=== PATIENT | female | born 1985 | race African-American/Black ===

== ENCOUNTER 2016-05-04 09:52 | Emergency (ER) | payer OTHER ==
[~2016-05-04] VITALS: Ht 152.4 cm; Wt 93.9 kg
[2016-05-04 10:04] VITALS: BP 132/82
--- NOTE | 2016-05-04 10:10 | NUR ---
Patient ambulated to bed 04.
[2016-05-04] MEDS ORDERED: CYCLOBENZAPRINE10 M5 PO (10:13)
[2016-05-04] MEDS ORDERED: NORCO 5/325 MG1 TAB PO (10:13)
[2016-05-04] MEDS ORDERED: MOTRIN600 MG PO (10:13)
--- NOTE | 2016-05-04 10:14 | NUR ---
30/F TO ED WITH C/O LOWER BACK PAIN 12/09 ACHING. DENIES TRAUMA. PT STATES SHE WAS SEEN IN ED 1 WEEK AGO. LUNGS CLEAR BILAT. HR EVEN AND REGULAR. AAOX4. VSS. NO SIGNS OF DISTRESS.
--- NOTE | 2016-05-04 10:38 | NUR ---
Dr. Holloway evaluating patient at bedside.
[2016-05-04] MEDS ORDERED: KETOROLAC 60 MG/2 ML VIAL IM ONE (10:40)
[2016-05-04] MEDS ORDERED: HYDROcodone/APAP 7.5/325 MG 1 TAB PO ONE (10:40)
[2016-05-04 12:15] VITALS: BP 132/82
--- NOTE | 2016-05-04 12:16 | NUR ---
Patient discharged with v/s stable. Written and verbal after care instructions given and explained. Patient alert, oriented and verbalized understanding of instructions. Ambulatory with steady gait. All questions addressed prior to discharge. ID band removed. Patient advised to follow up with PMD. Rx of MOBIC AND NORCO given. Patient educated on indication of medication including possible reaction and side effects. Opportunity to ask questions provided and answered.
== END 2016-05-04 12:16 | disposition home or self-care (01) ==
LOC: MED 09:55
DX: M54.40 Lumbago with sciatica, unspecified side (principal)
CPT/HCPCS: 96372; 99283; J1885

== ENCOUNTER 2016-05-18 12:43 | Emergency (ER) | payer OTHER ==
[~2016-05-18] VITALS: Ht 152.4 cm; Wt 91.6 kg
[~2016-05-18 12:43] MED LIST: CYCL10TA40 PO; HYDR-4446 PO; IBUP-2213 PO
[2016-05-18 12:59] VITALS: BP 125/68
--- NOTE | 2016-05-18 14:00 | NUR ---
Patient ambulated to bed 05.
--- NOTE | 2016-05-18 14:04 | NUR ---
PATIENT PRESENTS TO ED WITH C/O ABD PAIN AND NVD SINCE YESTERDAY; SKIN IS PINK/WARM/DRY; AAOX4 WITH EVEN AND STEADY GAIT; LUNGS CLEAR BL; HR EVEN AND REGULAR; PT DENIES ANY FEVER, CP, SOB, OR COUGH AT THIS TIME; PATIENT STATES PAIN OF 10/10 AT THIS TIME; VSS; PATIENT POSITIONED FOR COMFORT; HOB ELEVATED; BEDRAILS UP X2; BED DOWN. ER MD MADE AWARE OF PT STATUS.
[2016-05-18] MEDS ORDERED: KETOROLAC 30 MG/ML VIAL IVP ONE (14:15)
[2016-05-18] MEDS ORDERED: ONDANSETRON 4 MG/2 ML VIAL IVP ONE (14:15)
[2016-05-18] MEDS: NACL 0.9% 1,000 ML IV SCH ×2 (14:31→16:12)
[2016-05-18 14:41] LABS: HEMOGLOBIN 15.2 g/dL (12.0-16.0); MEAN CORPUSCULAR HEMOGLOBIN 29 pg (27-31); MEAN CORPUSCULAR HGB CONC 33 g/dL (33-37); MEAN CORPUSCULAR VOLUME 88 fL (80-94); PLATELET COUNT (AUTO) 204 K/uL (140-450); RED BLOOD CELL COUNT(AUTO) 5.25 MIL/uL (4.20-5.40); RED CELL DISTRIBUTION WIDTH 11.5 % (11.6-13.7); WHITE BLOOD COUNT (AUTO) 12.1 K/uL (4.8-10.8)
[2016-05-18 14:51] LABS: ANION GAP 16.6 (8-16); CALCIUM 8.7 mg/dL (8.5-10.1); CARBON DIOXIDE 24.4 mmol/L (21-32)
[2016-05-18 14:56] LABS: TOTAL BILIRUBIN 0.6 mg/dL (0.0-1.0)
[2016-05-18 15:02] LABS: BAND % (MANUAL) 9 % (0-8); LYMPHOCYTES % (MANUAL) 4 % (20-46); MONOCYTES % (MANUAL) 2 % (5-12); NEUTROPHILS % (MANUAL) 85 (43-65); PLATELET ESTIMATE ADEQUATE
[2016-05-18 15:57] LABS: BILIRUBIN,URINE NEGATIVE (NEGATIVE); BLOOD, URINE 3+ (NEGATIVE); COLOR,URINE YELLOW (YELLOW); LEUKOCYTE ESTERASE ,URINE NEGATIVE (NEGATIVE); NITRITE, URINE NEGATIVE (NEGATIVE); PH,URINE 5.5 (5.0-9.0); PROTEIN,URINE 2+ (NEGATIVE); UGLUCOSE NEGATIVE (NEGATIVE); UROBILINOGEN,URINE 0.2 EU/dL (0.2 - 1)
[2016-05-18 15:59] LABS: APPEARANCE,URINE HAZY (CLEAR)
[2016-05-18 16:06] LABS: BACTERIA,URINE 1+ /HPF (None Seen); RBC,URINE 0-5 (RARE) /HPF (0-5); SQUAMOUS EPITHELIAL CELL,UR 4-10 (MOD) /LPF (0-3 (FEW)); WBC,URINE 0-5 (RARE) /HPF (0-5)
[2016-05-18] MEDS ORDERED: SULFAMETH/TRIMETH DS 800/160MG 1 TAB PO ONE (16:25)
[2016-05-18] MEDS ORDERED: NACL 0.9% 1,000 ML IV ONE (16:40)
[2016-05-18 17:00] VITALS: BP 124/72
--- NOTE | 2016-05-18 17:00 | NUR ---
Patient discharged with v/s stable. Written and verbal after care instructions given and explained. Patient alert, oriented and verbalized understanding of instructions. Ambulatory with steady gait. All questions addressed prior to discharge. ID band removed. Patient advised to follow up with PMD. Rx of ZOFRAN, BACTRIM given. Patient educated on indication of medication including possible reaction and side effects. Opportunity to ask questions provided and answered.
== END 2016-05-18 17:00 | disposition home or self-care (01) ==
LOC: MED 12:43
DX: N39.0 Urinary tract infection, site not specified (principal); T62.8X1A Toxic effect of other specified noxious substances eaten as food, accidental (unintentional), initial encounter; Y92.89 Other specified places as the place of occurrence of the external cause
CPT/HCPCS: 36415; 80053; 81001; 82150; 83690; 84703; 85025; 87086; 96361; 96374; 96375; 99285; J1885; J2405; J7030

== ENCOUNTER 2016-06-12 13:58 | Emergency (ER) | payer OTHER ==
[~2016-06-12] VITALS: Ht 160 cm; Wt 89.0 kg
[~2016-06-12 13:58] MED LIST changes: -CYCL10TA40 PO; +CYCLOBENZAPRINE10 M5 PO; -HYDR-4446 PO; -IBUP-2213 PO; +MOTRIN600 MG PO; +NORCO 5/325 MG1 TAB PO
[2016-06-12 14:49] VITALS: BP 111/76
--- NOTE | 2016-06-12 17:05 | NUR ---
PATIENT PRESENTS TO ED WITH c/o bug bites ON LOWER EXTREMITIES with pruritus x3 days PT STATES [place] 3 DAYS AGO AND I THINK I GOT BUG BITE. DENIES N/V/D; SKIN IS PINK/WARM/DRY; AAOX4 WITH EVEN AND STEADY GAIT; LUNGS CLEAR BL; HR EVEN AND REGULAR; PT DENIES ANY FEVER, CP, SOB, OR COUGH AT THIS TIME; PATIENT STATES PAIN OF 0/10 AT THIS TIME; VSS; PATIENT POSITIONED FOR COMFORT; HOB ELEVATED; BEDRAILS UP X2; BED DOWN. ER MD MADE AWARE OF PT STATUS.
--- NOTE | 2016-06-12 17:08 | NUR ---
NOTED DRY RASH ON LOWER EXTREMITIES, NO BLEEDING NOTED, C/O OF ITCHINESS.
[2016-06-12 17:54] VITALS: BP 127/84
--- NOTE | 2016-06-12 17:55 | NUR ---
Patient discharged with v/s stable. Written and verbal after care instructions given and explained. Patient alert, oriented and verbalized understanding of instructions. Ambulatory with steady gait. All questions addressed prior to discharge. ID band removed. Patient advised to follow up with PMD. Rx of zyrtec and hydrocortisone given. Patient educated on indication of medication including possible reaction and side effects. Opportunity to ask questions provided and answered.encouraged vit c intake and pt agreed with it
== END 2016-06-12 17:55 | disposition home or self-care (01) ==
LOC: MED 13:58
DX: S90.562A Insect bite (nonvenomous), left ankle, initial encounter (principal); S80.862A Insect bite (nonvenomous), left lower leg, initial encounter; W57.XXXA Bitten or stung by nonvenomous insect and other nonvenomous arthropods, initial encounter; Y93.89 Activity, other specified; Y92.830 Public park as the place of occurrence of the external cause; Y99.8 Other external cause status

== ENCOUNTER 2017-05-24 19:39 | Emergency (ER) | payer OTHER ==
[~2017-05-24] VITALS: Ht 152.4 cm; Wt 95.3 kg
[~2017-05-24 19:39] MED LIST changes: +ACET-8386 PO; +CYCL10TA36 PO; -CYCLOBENZAPRINE10 M5 PO; +IBUP-2213 PO; -MOTRIN600 MG PO; -NORCO 5/325 MG1 TAB PO
[2017-05-24 19:44] VITALS: BP 146/85
--- NOTE | 2017-05-24 19:53 | NUR ---
PT AMBULATED TO BED 3 Addendum: 05/24/17 at 6 by JAMES PATIENT IN BED 1
--- NOTE | 2017-05-24 19:55 | NUR ---
PATIENT IS A 31 Y/O FEMALE WHO PRESENTS TO THE ED C/O VAGINAL BLEEDING. PT STATES SHE IS 9 WEEKS AND EXPERIENCING BLEEDING X3 DAYS." . PT REPORTS 10/10 ACHING VAGINAL PAIN THAT DOES NOT RADIATE. PT DENIES CP, SOB, REPORTS NAUSEA/VOMITING DENIES DIARRHEA. PT AAOX4, RR EVEN/UNLABORED. PT REPOSITIONED FOR COMFORT, BED IN LOWEST POSITION. ER MD DR. SOTO NOTIFIED. WILL CONTINUE TO MONITOR. Addendum: 05/24/17 at 2331 by [email or web address] PATIENT IS A 31 Y/O FEMALE WHO PRESENTS TO THE ED C/O VAGINAL BLEEDING. PT STATES SHE IS 9 WEEKS AND EXPERIENCING BLEEDING X3 DAYS." . PT REPORTS 10/10 ACHING VAGINAL PAIN THAT DOES NOT RADIATE. PT DENIES CP, SOB, REPORTS NAUSEA/VOMITING DENIES DIARRHEA. PT AAOX4, RR EVEN/UNLABORED. PT REPOSITIONED FOR COMFORT, BED IN LOWEST POSITION. ER MD DR. SOTO NOTIFIED. WILL CONTINUE TO MONITOR.
[2017-05-24] MEDS ORDERED: ACETAMINOPHEN 325 MG TAB PO ONE (20:35)
[2017-05-24] MEDS ORDERED: METOCLOPRAMIDE 10 MG TAB PO ONE (20:35)
[2017-05-24 20:43] LABS: BASOPHILS # (AUTO) 0.3 K/uL (0.00-0.22); BASOPHILS % (AUTO) 2.3 % (0.0-2.0); EOSINOPHILS # (AUTO) 0.1 K/uL (0-0.4); EOSINOPHILS % (AUTO) 0.8 % (0.0-4.0); HEMATOCRIT 36.9 % (36-48); HEMOGLOBIN 12.5 g/dL (12.0-16.0); LYMPHOCYTES # (AUTO) 3.5 K/uL (2.5-16.5); LYMPHOCYTES % (AUTO) 31.1 % (20.5-51.1); MEAN CORPUSCULAR HEMOGLOBIN 29 pg (27-31); MEAN CORPUSCULAR HGB CONC 34 g/dL (33-37); MEAN CORPUSCULAR VOLUME 86.6 fL (80-94); MONOCYTES % (AUTO) 8.5 % (1.7-9.3); NEUTROPHILS # (AUTO) 6.4 K/uL (1.8-7.7); NEUTROPHILS % (AUTO) 57.3 % (42.2-75.2); PLATELET COUNT (AUTO) 178 K/uL (140-450); RED BLOOD CELL COUNT(AUTO) 4.26 MIL/uL (4.20-5.40); RED CELL DISTRIBUTION WIDTH 12.4 % (11.6-13.7); WHITE BLOOD COUNT (AUTO) 11.3 K/uL (4.8-10.8)
[2017-05-24 20:54] LABS: ALBUMIN 3.2 g/dL (3.4-5.0); CARBON DIOXIDE 26.6 mmol/L (21-32); CREATININE 0.6 mg/dL (0.6-1.3); POTASSIUM 3.6 mmol/L (3.5-5.1); TOTAL BILIRUBIN 0.3 mg/dL (0.0-1.0)
--- NOTE | 2017-05-24 20:55 | NUR ---
PATIENT RESTING AT THIS TIME. NO SIGNS OF DISTRESS.
[2017-05-24 22:42] LABS: APPEARANCE,URINE CLEAR (CLEAR); BILIRUBIN,URINE NEGATIVE (NEGATIVE); BLOOD, URINE 2+ (NEGATIVE); COLOR,URINE YELLOW (YELLOW); LEUKOCYTE ESTERASE ,URINE NEGATIVE (NEGATIVE); NITRITE, URINE NEGATIVE (NEGATIVE); PH,URINE 7.5 (5.0-9.0); UGLUCOSE NEGATIVE (NEGATIVE)
[2017-05-24 23:21] LABS: RBC,URINE 3-10 (FEW) /HPF (0-5); WBC,URINE 0-5 (RARE) /HPF (0-5)
[2017-05-24 23:47] VITALS: BP 125/82
--- NOTE | 2017-05-24 23:47 | NUR ---
Patient discharged with v/s stable. Written and verbal after care instructions given and explained. Patient alert, oriented and verbalized understanding of instructions. Ambulatory with steady gait. All questions addressed prior to discharge. ID band removed. Patient advised to follow up with PMD. Rx of KEFLEX 500MG given. Patient educated on indication of medication including possible reaction and side effects. Opportunity to ask questions provided and answered.
== END 2017-05-24 23:47 | disposition home or self-care (01) ==
LOC: MED 19:39
DX: O34.81 Maternal care for other abnormalities of pelvic organs, first trimester (principal); N83.202 Unspecified ovarian cyst, left side; O20.8 Other hemorrhage in early pregnancy; Z3A.09 9 weeks gestation of pregnancy; Z79.899 Other long term (current) drug therapy
CPT/HCPCS: 36415; 76801; 80053; 81001; 81025; 84702; 85025; 86900; 86901; 87086; 99285; J8597; Q0092

== ENCOUNTER 2017-06-25 14:11 | Emergency (ER) | payer OTHER ==
[~2017-06-25] VITALS: Ht 152.4 cm; Wt 90.7 kg
[2017-06-25 14:21] VITALS: BP 145/85
--- NOTE | 2017-06-25 14:37 | NUR ---
Note undone in EDM - 06/25/17 at 1454 by [email or web address] / BIB SELF C/O LOWER ABDOMINAL PAIN & foul smeeling VAGINAL DISCHARGE X 2DAYS.pt stated " i had sex with my child's father that i should have and after that i have lower abdominal pain & bad smeel vaginal discharge". HAD & UTI 05/25/17. LMP 06/17/17. DENIES N/V/D; SKIN IS PINK/WARM/DRY; AAOX4 WITH EVEN AND STEADY GAIT; LUNGS CLEAR BL; PATIENT STATES PAIN OF 4/10 AT THIS TIMe. PATIENT POSITIONED FOR COMFORT; HOB ELEVATED; BEDRAILS UP X2; BED DOWN. ER MD MADE AWARE OF PT STATUS.
--- NOTE | 2017-06-25 14:37 | NUR ---
31/f BIB SELF C/O LOWER ABDOMINAL PAIN & foul smeeling VAGINAL DISCHARGE X 2DAYS.pt stated " i had sex with my child's father that i should not had and after that i have lower abdominal pain & bad smeel vaginal discharge". HAD & UTI 05/25/17. LMP 06/17/17. DENIES N/V/D; SKIN IS PINK/WARM/DRY; AAOX4 WITH EVEN AND STEADY GAIT; LUNGS CLEAR BL; PATIENT STATES PAIN OF 4/10 AT THIS TIMe. PATIENT POSITIONED FOR COMFORT; HOB ELEVATED; BEDRAILS UP X2; BED DOWN. ER MD MADE AWARE OF PT STATUS.
--- NOTE | 2017-06-25 15:25 | NUR ---
PELVIC EXAM DONE BY DR RUIZ. PT TOLERATED PROCEDURE WELL. SENT SPECIMEN TO LAB.
--- NOTE | 2017-06-25 15:57 | NUR ---
PT STATED" I WANT PAIN MED SHOT". NOTIFIED DR RUIZ. PAIN 07/09 AT THIS TIME.
[2017-06-25] MEDS ORDERED: IBUPROFEN 400 MG TAB PO ONE (16:00)
--- NOTE | 2017-06-25 16:41 | NUR ---
Patient being reevaluated by DR RUIZ at bedside.
[2017-06-25 16:46] VITALS: BP 141/86
--- NOTE | 2017-06-25 16:47 | NUR ---
Patient discharged with v/s stable. Written and verbal after care instructions given and explained. Patient alert, oriented and verbalized understanding of instructions. Ambulatory with steady gait. All questions addressed prior to discharge. ID band removed. Patient advised to follow up with PMD. Rx of flagyl given. Patient educated on indication of medication including possible reaction and side effects. Opportunity to ask questions provided and answered.
[2017-06-29 08:32] LABS: CHLAMYDIA TRACHOMATIS AMP DNA Negative (Negative)
== END 2017-06-25 16:47 | disposition home or self-care (01) ==
LOC: MED 14:11
DX: N76.0 Acute vaginitis (principal); B96.89 Other specified bacterial agents as the cause of diseases classified elsewhere; Z98.890 Other specified postprocedural states
CPT/HCPCS: 36415; 81002; 81025; 87070; 87205; 87210; 87491; 99284

== ENCOUNTER 2017-10-27 22:10 | Emergency (ER) | payer OTHER ==
[~2017-10-27] VITALS: Ht 152.4 cm; Wt 90.7 kg
--- NOTE | 2017-10-27 22:49 | NUR ---
PT AMBULATED TO BED 5 WITH VSS
--- NOTE | 2017-10-27 22:50 | NUR ---
pt presented er with c/o of foul smell x 1 day. pt wanted to make sure she did not have a bacterial infection. kna and no previous medical hx. AAOX4 ; PATIENT STATES PAIN OF 0/10 AT THIS TIME; VSS; PATIENT POSITIONED FOR COMFORT; HOB ELEVATED; BEDRAILS UP X2; BED DOWN. ER MD MADE AWARE OF PT STATUS.
--- NOTE | 2017-10-27 22:56 | NUR ---
Dr. Ponce evaluating patient at bedside.
[2017-10-27 23:33] LABS: APPEARANCE,URINE SL CLOUDY (CLEAR); BILIRUBIN,URINE NEGATIVE (NEGATIVE); BLOOD, URINE 3+ (NEGATIVE); COLOR,URINE YELLOW (YELLOW); LEUKOCYTE ESTERASE ,URINE NEGATIVE (NEGATIVE); NITRITE, URINE NEGATIVE (NEGATIVE); UGLUCOSE NEGATIVE (NEGATIVE)
[2017-10-27 23:40] LABS: RBC,URINE 3-10 (FEW) /HPF (0-5); WBC,URINE 0-5 (RARE) /HPF (0-5)
[2017-10-28] MEDS ORDERED: PHENAZOPYRIDINE 100 MG TAB PO ONE (00:10)
[2017-10-28] MEDS ORDERED: metroNIDAZOLE 250 MG TAB PO ONE (00:10)
[2017-10-28 00:33] VITALS: BP 132/76
--- NOTE | 2017-10-28 00:33 | NUR ---
Patient discharged with v/s stable. Written and verbal after care instructions given and explained. Patient alert, oriented and verbalized understanding of instructions. Ambulatory with steady gait. All questions addressed prior to discharge. ID band removed. Patient advised to follow up with PMD. Rx of flagyl was given. Patient educated on indication of medication including possible reaction and side effects. Opportunity to ask questions provided and answered.
== END 2017-10-28 00:33 | disposition home or self-care (01) ==
LOC: MED 22:10
DX: N76.0 Acute vaginitis (principal); Z79.899 Other long term (current) drug therapy
CPT/HCPCS: 81001; 81025; 99283

== ENCOUNTER 2018-01-20 17:17 | Emergency (ER) | payer OTHER ==
[~2018-01-20] VITALS: Ht 162.6 cm; Wt 87.1 kg
[2018-01-20 17:21] VITALS: BP 80/51
--- NOTE | 2018-01-20 17:35 | NUR ---
PATIENT PRESENTS TO ED WITH c/o foul-smelling vaginal discharge, light/milky w/ vaginal itching. states she was here 2 months ago w/ same symptoms dx bacterial vaginosis, given flagyl and it worked well. pt states that she slept with the same man again and the symptoms restarted. recently had a pap smear, - for stds. denies pain/n/v/d/fever. denies pain, VSS; PATIENT POSITIONED FOR COMFORT; HOB ELEVATED; BEDRAILS UP X2; BED DOWN. ER MD MADE AWARE OF PT STATUS.
--- NOTE | 2018-01-20 18:20 | NUR ---
Patient being evaluated by physician at bedside.
[2018-01-20] MEDS ORDERED: metroNIDAZOLE 250 MG TAB PO ONE (18:35)
[2018-01-20 18:40] VITALS: BP 92/53
--- NOTE | 2018-01-20 18:40 | NUR ---
Patient discharged with v/s stable. Written and verbal after care instructions given and explained. Patient alert, oriented and verbalized understanding of instructions. Ambulatory with steady gait. All questions addressed prior to discharge. ID band removed. Patient advised to follow up with PMD. Rx of FLAGYL given. Patient educated on indication of medication including possible reaction and side effects. Opportunity to ask questions provided and answered.
== END 2018-01-20 18:40 | disposition home or self-care (01) ==
LOC: MED 17:17
DX: N76.0 Acute vaginitis (principal); Z79.899 Other long term (current) drug therapy
CPT/HCPCS: 81002; 81025; 99283

== ENCOUNTER 2018-05-24 18:48 | Emergency (ER) | payer OTHER ==
[~2018-05-24] VITALS: Ht 152.4 cm; Wt 96.2 kg
[2018-05-24 19:07] VITALS: BP 137/78
--- NOTE | 2018-05-24 19:12 | NUR ---
PT AMB TO [facility] WITH DAUGHTER
--- NOTE | 2018-05-24 19:32 | NUR ---
PT AMBULATED TO ED BED 01.
--- NOTE | 2018-05-24 19:35 | NUR ---
32 Y F C/O FOUL VAGINAL ODOR, ITCHING, AND WHITE DISCHARGE X 4 DAYS. DENIES LOW BACK PAIN. DENIES URINARY SYMPTOMS. PT STATES DISCHARGE IS MILKY WHITE. BED IS DOWN, LOCKED, BED RAIL X 1, ERMD NOTIFIED. HX: DENIES RX: DENIES
--- NOTE | 2018-05-24 20:20 | NUR ---
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 YEN WITH PELVIC EXAM, WET MOUNT COLLECTED BY DR. YEN AND SENT TO LAB.
[2018-05-24] MEDS ORDERED: AZITHROMYCIN 250 MG TAB PO ONE (21:05)
[2018-05-24] MEDS ORDERED: cefTRIAXone 250 MG in LIDOCAINE MPF 1% - 5 mL VIAL 0.9 ML IM ONE (21:05)
--- NOTE | 2018-05-24 21:10 | NUR ---
REPORT RECV'D FROM LARS JURADO
[2018-05-24 21:20] VITALS: BP 125/72
--- NOTE | 2018-05-24 21:20 | NUR ---
Patient discharged with v/s stable. Written and verbal after care instructions given and explained. Patient verbalized understanding. Ambulatory with steady gait. All questions addressed prior to discharge. PRESCRIPTION OF FLAGYL GIVE, SIDE EFFECTS DISCUSSED WITH PATIENT. Advised to follow up with PMD.
[2018-05-27 06:50] LABS: CHLAMYDIA TRACHOMATIS AMP DNA Negative (Negative)
== END 2018-05-24 21:20 | disposition home or self-care (01) ==
LOC: MED 18:48
DX: N89.8 Other specified noninflammatory disorders of vagina (principal); L29.9 Pruritus, unspecified; Z79.1 Long term (current) use of non-steroidal anti-inflammatories (NSAID); Z79.891 Long term (current) use of opiate analgesic; Z79.899 Other long term (current) drug therapy
CPT/HCPCS: 36415; 81002; 81025; 87210; 87491; 96372; 99283; J0696; J2001

== ENCOUNTER 2019-04-25 17:19 | Emergency (ER) | payer OTHER ==
[~2019-04-25] VITALS: Ht 152.4 cm; Wt 93.0 kg
[2019-04-25 17:21] VITALS: BP 120/95
--- NOTE | 2019-04-25 17:25 | NUR ---
WAIT AT LOBBY
[2019-04-25] MEDS ORDERED: DEXAMETHASONE 10 MG/ML VIAL IM ONE (19:40)
[2019-04-25] MEDS ORDERED: KETOROLAC 60 MG/2 ML VIAL IM ONE (19:40)
--- NOTE | 2019-04-25 19:50 | NUR ---
33 y/o female presents to ed with severe thoat pain with swallowing x1 wk. also c/o gen body aches. afebrile with vss. no exudate on tonsils. redness and edema present. no cough. er md aware. pt sitting in chair. continue to monitor.
[2019-04-25 20:55] VITALS: BP 128/76
--- NOTE | 2019-04-25 20:55 | NUR ---
Patient discharged with v/s stable. States pain reduced to a tollerable 4/10. Written and verbal after care instructions given and explained. Patient alert, oriented and verbalized understanding of instructions. Ambulatory with steady gait. All questions addressed prior to discharge. ID band removed. Patient advised to follow up with PMD. Rx of Cepacol, Amoxicillin, and Ibuprofen given. Patient educated on indication of medication including possible reaction and side effects. Opportunity to ask questions provided and answered.
== END 2019-04-25 20:55 | disposition home or self-care (01) ==
LOC: MED 17:19
DX: J02.9 Acute pharyngitis, unspecified (principal); Z79.899 Other long term (current) drug therapy
CPT/HCPCS: 96372; 99284; J1100; J1885

== ENCOUNTER 2022-07-24 07:39 | Emergency (ER) | payer OTHER ==
[~2022-07-24] VITALS: Ht 152.4 cm; Wt 87.1 kg
[~2022-07-24 07:39] MED LIST changes: -ACET-8386 PO; +ACET-8905 PO
[2022-07-24 07:45] VITALS: BP 131/84
--- NOTE | 2022-07-24 07:56 | NUR ---
Patient being evaluated by physician at bedside.
--- NOTE | 2022-07-24 08:22 | NUR ---
Patient discharged with v/s stable. Written and verbal after care instructions given and explained. Patient verbalized understanding. Ambulatory with to home. All questions addressed prior to discharge. Advised to follow up with PMD.
== END 2022-07-24 08:20 | disposition home or self-care (01) ==
LOC: MED 07:39
DX: B34.9 Viral infection, unspecified (principal); Z79.899 Other long term (current) drug therapy; Z79.1 Long term (current) use of non-steroidal anti-inflammatories (NSAID)
CPT/HCPCS: 99282

== ENCOUNTER 2022-11-02 18:53 | Emergency (ER) | payer OTHER ==
[~2022-11-02] VITALS: Ht 152.4 cm; Wt 88.9 kg
[2022-11-02 19:00] VITALS: BP 138/91; PULSE 80; RESP 18; TEMP 98.2; O2SAT 100
[2022-11-02] MEDS ORDERED: CIPR7.5S BOTH EARS (19:23)
[2022-11-02] MEDS ORDERED: IBUP-2213 PO (19:23)
[2022-11-02 19:30] VITALS: BP 138/91; PULSE 80; RESP 18; TEMP 98.2; O2SAT 100
== END 2022-11-02 19:30 | disposition home or self-care (01) ==
LOC: MED 18:53
DX: H60.93 Unspecified otitis externa, bilateral (principal); Z79.899 Other long term (current) drug therapy
CPT/HCPCS: 99283